=== PATIENT | female | born 1985 | race Two or more races ===

== ENCOUNTER 2019-08-08 16:18 | Emergency (ER) | payer MEDICAID ==
[2019-08-08] MEDS ORDERED: Cyclobenzaprine 10 MG Tab PO ONE (16:19)
[2019-08-08 16:53] VITALS: BP 133/88; PULSE 87
[2019-08-08] MEDS ORDERED: Ketorolac 60 MG/2 ML SDV IM ONE (17:45)
[2019-08-08] MEDS ORDERED: Fluconazole 150 MG Tab PO ONE (20:34)
[2019-08-08] MEDS ORDERED: Ketorolac 60 MG/2 ML SDV ONE (20:48)
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
[2019-08-11 13:09] LABS: CHLAMYDIA TRACHOMATIS, NAA Negative (Negative); NEISSERIA GONORRHOEAE, NAA Negative (Negative)
== END 2019-08-08 21:14 | disposition home or self-care (01) ==
LOC: FB.ED 16:18
DX: S09.90XA Unspecified injury of head, initial encounter (principal); F17.210 Nicotine dependence, cigarettes, uncomplicated; Z88.2 Allergy status to sulfonamides; Z88.8 Allergy status to other drugs, medicaments and biological substances; Z79.899 Other long term (current) drug therapy; Y04.0XXA Assault by unarmed brawl or fight, initial encounter; Y92.009 Unspecified place in unspecified non-institutional (private) residence as the place of occurrence of the external cause
CPT/HCPCS: 36415; 70450; 71111; 72072; 72100; 72125; 73130-50; 80053; 82150; 83690; 84702; 85025; 85610; 85730; 87491; 87591; 96372; 99284-25; A9270-GY; J1885

== ENCOUNTER 2019-08-28 03:03 | Emergency (ER) | payer MEDICAID ==
[2019-08-28 03:19] VITALS: BP 126/64; PULSE 102
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
[2019-08-28] MEDS ORDERED: Azithromycin 500 MG Tab PO ONE (03:40)
== END 2019-08-28 04:00 | disposition home or self-care (01) ==
LOC: FB.ED 03:03
DX: J01.90 Acute sinusitis, unspecified (principal); H10.33 Unspecified acute conjunctivitis, bilateral; F17.210 Nicotine dependence, cigarettes, uncomplicated; Z88.8 Allergy status to other drugs, medicaments and biological substances; Z88.2 Allergy status to sulfonamides; Z79.899 Other long term (current) drug therapy
CPT/HCPCS: 99283; A9270

== ENCOUNTER 2019-12-04 20:17 | Emergency (ER) | payer MEDICAID ==
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
[2019-12-04] MEDS: Doxycycline 100 MG Tab PO STA (21:13)
[2019-12-04] MEDS: Ketorolac 60 MG/2 ML SDV IM ONE (21:13)
[2019-12-04] MEDS: Clindamycin HCl 150 MG Cap PO STA (21:13)
[2019-12-04 21:50] VITALS: BP 122/65; PULSE 100
== END 2019-12-04 21:34 | disposition home or self-care (01) ==
LOC: FB.ED 20:17
DX: L03.116 Cellulitis of left lower limb (principal); M19.90 Unspecified osteoarthritis, unspecified site; F17.210 Nicotine dependence, cigarettes, uncomplicated; Z88.2 Allergy status to sulfonamides; Z88.1 Allergy status to other antibiotic agents
CPT/HCPCS: 96372; 99283; A9270-GY; J1885

== ENCOUNTER 2021-08-28 12:47 | Emergency (ER) | payer MEDICAID, OTHER ==
[2021-08-28] MEDS ORDERED: Ketorolac 30 MG/ML SDV IM ONE (12:52)
[2021-08-28] MEDS ORDERED: Ketorolac 30 MG/ML SDV IVPUSH ONE (13:04)
[2021-08-28] MEDS ORDERED: Acetaminophen/HYDROcodone 325-5 MG Tab PO ONE (14:25)
== END 2021-08-28 16:50 | disposition home or self-care (01) ==
LOC: FB.ED 12:47
DX: S39.012A Strain of muscle, fascia and tendon of lower back, initial encounter (principal); S60.012A Contusion of left thumb without damage to nail, initial encounter; Z88.1 Allergy status to other antibiotic agents; Z88.2 Allergy status to sulfonamides; V49.10XA Passenger injured in collision with unspecified motor vehicles in nontraffic accident, initial encounter; Y92.410 Unspecified street and highway as the place of occurrence of the external cause
CPT/HCPCS: 71045; 72131; 73140; 81001; 81025; 93005; 96374; 99285; A9270; J1885

== ENCOUNTER 2022-08-14 06:55 | Emergency (ER) | payer BC ==
[2022-08-14 07:32] VITALS: BP 129/88; PULSE 102
[2022-08-14 07:44] LABS: ESTIMATED GFR 96 mL/min (>60)
[2022-08-14] MEDS ORDERED: Ketorolac 30 MG/ML SDV IM ONE (08:02)
[2022-08-14] MEDS ORDERED: LORazepam 1 MG Tab PO ONE (08:02)
[2022-08-14] MEDS ORDERED: Ondansetron 4 MG Tab.DIS PO ONE (08:02)
== END 2022-08-14 08:55 | disposition home or self-care (01) ==
LOC: FB.ED 06:55
DX: R07.89 Other chest pain (principal); G43.909 Migraine, unspecified, not intractable, without status migrainosus; F19.10 Other psychoactive substance abuse, uncomplicated; K21.9 Gastro-esophageal reflux disease without esophagitis; F17.210 Nicotine dependence, cigarettes, uncomplicated; Z88.1 Allergy status to other antibiotic agents
CPT/HCPCS: 36415; 71045; 80053; 80307; 84484; 85025; 93005; 93010; 96372; 99283; 99285; A9270-GY; J1885; Q0162

== ENCOUNTER 2023-05-16 04:16 | Emergency (ER) | payer BC, MEDICAID ==
[2023-05-16] MEDS ORDERED: Ketorolac 30 MG/ML SDV IVPUSH ONE (04:49)
[2023-05-16] MEDS ORDERED: Morphine 4 MG/ML VIAL IVPUSH ONE ×2 (04:49→06:02)
[2023-05-16] MEDS ORDERED: Sodium Chloride 0.9% 1,000 ML IV STA (04:50)
[2023-05-16] MEDS: Ondansetron 4 MG/2 ML SDV IVPUSH ONE ×4 (04:52→06:11)
[2023-05-16 05:11] LABS: BASOPHILS PERCENT AUTO 0.6 % (0.2-1.5); BLOOD UREA NITROGEN,BUN 19 mg/dL (7-18); BUN/CREATININE RATIO 27.1 (9-20); CARBON DIOXIDE,CO2 31 mmol/L (21-32); CHLORIDE,CL 103 mmol/L (100-110); CREATININE 0.7 mg/dL (0.55-1.02); EOSINOPHILS ABSOLUTE AUTO 0.1 x10-3/uL (0.0-0.8); EOSINOPHILS PERCENT AUTO 1.8 % (0.6-8.1); ESTIMATED GFR 112 mL/min (>60); GLUCOSE RANDOM 94 mg/dL (80-116); HEMATOCRIT 34.8 % (34.2-48.2); HEMOGLOBIN 11.5 g/dL (11.4-15.5); LYMPHOCYTES PERCENT AUTO 24.4 % (18.4-52.1); MEAN CORPUSCULAR HEMOGLOBIN 27.3 pg (23.9-33.9); MEAN CORPUSCULAR HGB CONC 32.9 g/dL (31.9-34.8); MEAN PLATELET VOLUME 8.2 fL (7.1-12.4); MONOCYTES ABSOLUTE AUTO 0.7 x10-3/uL (0.3-1.0); MONOCYTES PERCENT AUTO 7.9 % (4.4-15.7); NEUTROPHILS ABSOLUTE AUTO 5.4 x10-3/uL (1.5-6.3); NEUTROPHILS PERCENT AUTO 65.3 % (30.8-76.2); PLATELET COUNT,PLT 327 x10(3)uL (151-488); POTASSIUM,K 4.6 mmol/L (3.5-5.3); RED BLOOD CELL COUNT 4.19 x10(6)uL (3.60-5.20); RED CELL DISTRIBUTION WIDTH 14.3 % (12.3-16.5); SODIUM,NA 138 mmol/L (135-145); WHITE BLOOD CELL COUNT,WBC 8.2 x10-3/uL (3.0-10.3)
[2023-05-16 05:14] LABS: C-REACTIVE PROTEIN 0.37 mg/dL (<0.33)
[2023-05-16 05:16] LABS: A/G RATIO 0.9; ALANINE AMINOTRANSFERASE,ALT 47 U/L (12-36); ALBUMIN 3.1 g/dL (3.5-5.2); ALKALINE PHOSPHATASE 66 IU/L (56-112); ASPARTATE AMNIOTRANSFERASE,AST 39 IU/L (5-25); BILIRUBIN TOTAL 0.3 mg/dL (0.1-1.3); PROTEIN TOTAL,TP 6.6 g/dL (6.0-8.0)
[2023-05-16 05:57] LABS: BILIRUBIN,URINE NEGATIVE (NEGATIVE); GLUCOSE,URINE NORMAL (NORMAL); KETONES,URINE NEGATIVE (NEGATIVE); LEUKOCYTE ESTERASE,URINE NEGATIVE (NEGATIVE); NITRITE,URINE NEGATIVE (NEGATIVE); OCCULT BLOOD,URINE NEGATIVE (NEGATIVE); PROTEIN,URINE NEGATIVE (NEGATIVE); UROBILINOGEN,URINE NORMAL (NEGATIVE)
[2023-05-16 06:07] LABS: APPEARANCE,URINE CLEAR (CLEAR); BACTERIA,URINE FEW (NS); COLOR,URINE YELLOW (YELLOW); MUCUS,URINE FEW (NS); RBC,URINE 0-5 (0-5); SQUAMOUS EPITHELIAL CELLS,UR FEW (NS,R,O); WBC,URINE 0-5 (0-5)
[2023-05-16] MEDS ORDERED: Iopamidol 755 Mg/ML 100 ML Bottle IV ONE (07:11)
[2023-05-16] MEDS ORDERED: cefTRIAXone 2 GM Vial IVPUSH ONE (08:28)
[2023-05-16 09:37] VITALS: BP 102/60; PULSE 58
[2023-05-17 18:02] LABS: HEPATITIS A ANTIBODY, IGM Negative (Negative); HEPATITIS B CORE ANTIBODY, IGM Negative (Negative); HEPATITIS B SURFACE ANTIGEN Negative (Negative); HEPATITIS C AB CIA INTERP Negative (Negative); HEPATITIS C ANTIBODY CIA INDEX <0.02 IV
== END 2023-05-16 09:35 | disposition home or self-care (01) ==
LOC: FB.ED 04:16
DX: R10.2 Pelvic and perineal pain (principal); K75.9 Inflammatory liver disease, unspecified; F17.210 Nicotine dependence, cigarettes, uncomplicated; K21.9 Gastro-esophageal reflux disease without esophagitis; Z79.899 Other long term (current) drug therapy; Z88.2 Allergy status to sulfonamides; Z88.8 Allergy status to other drugs, medicaments and biological substances
CPT/HCPCS: 36415; 74177; 80053; 80074; 81001; 81025; 83690; 85025; 86140; 96374; 96375; 96376; 99284-25; J0696; J1885; J2270; J2405; J7030; Q9967

== ENCOUNTER 2023-09-05 12:39 | Emergency (ER) | payer MEDICAID, OTHER ==
[2023-09-05 13:40] LABS: BASOPHILS PERCENT AUTO 0.5 % (0.2-1.5); EOSINOPHILS ABSOLUTE AUTO 0.1 x10-3/uL (0.0-0.8); EOSINOPHILS PERCENT AUTO 1.4 % (0.6-8.1); HEMATOCRIT 35.9 % (34.2-48.2); HEMOGLOBIN 11.8 g/dL (11.4-15.5); LYMPHOCYTES ABSOLUTE AUTO 1.7 x10-3/uL (1.0-4.4); LYMPHOCYTES PERCENT AUTO 22.2 % (18.4-52.1); MEAN CORPUSCULAR HEMOGLOBIN 26.9 pg (23.9-33.9); MEAN CORPUSCULAR HGB CONC 32.9 g/dL (31.9-34.8); MEAN CORPUSCULAR VOLUME 81.6 fL (76.7-100.5); MEAN PLATELET VOLUME 7.9 fL (7.1-12.4); MONOCYTES ABSOLUTE AUTO 0.7 x10-3/uL (0.3-1.0); MONOCYTES PERCENT AUTO 9.1 % (4.4-15.7); NEUTROPHILS PERCENT AUTO 66.8 % (30.8-76.2); PLATELET COUNT,PLT 352 x10(3)uL (151-488); RED CELL DISTRIBUTION WIDTH 14.8 % (12.3-16.5); WHITE BLOOD CELL COUNT,WBC 7.5 x10-3/uL (3.0-10.3)
[2023-09-05 13:42] LABS: BLOOD UREA NITROGEN,BUN 16 mg/dL (7-18); BUN/CREATININE RATIO 17.8 (9-20); CALCIUM 9.7 mg/dL (8.6-10.2); CARBON DIOXIDE,CO2 29 mmol/L (21-32); CHLORIDE,CL 102 mmol/L (100-110); CREATININE 0.9 mg/dL (0.55-1.02); EST CRCL DRUG DOSING (CG) 77.79 mL/min; ESTIMATED GFR 83 mL/min (>60); GLUCOSE RANDOM 97 mg/dL (80-116); POTASSIUM,K 3.2 mmol/L (3.5-5.3); SODIUM,NA 139 mmol/L (135-145)
[2023-09-05 13:48] LABS: A/G RATIO 0.9; ALANINE AMINOTRANSFERASE,ALT 22 U/L (12-36); ALBUMIN 3.4 g/dL (3.5-5.2); ALKALINE PHOSPHATASE 62 IU/L (56-112); ASPARTATE AMNIOTRANSFERASE,AST 16 IU/L (5-25); BILIRUBIN TOTAL 0.4 mg/dL (0.1-1.3); PROTEIN TOTAL,TP 7.2 g/dL (6.0-8.0)
[2023-09-05 13:55] LABS: TROPONIN I 4.4 pg/mL (4.0-60.3)
[2023-09-05 14:01] LABS: AMPHETAMINES SCREEN, URINE POSITIVE (NEGATIVE); BARBITURATE SCREEN,URINE NEGATIVE (NEGATIVE); BENZODIAZEPINES SCREEN,URINE NEGATIVE (NEGATIVE); BUPRENORPHINE SCREEN,URINE NEGATIVE (NEGATIVE); METHADONE SCREEN, URINE NEGATIVE (NEGATIVE); METHAMPHETAMINE SCREEN, URINE POSITIVE (NEGATIVE); OXYCODONE SCREEN,URINE NEGATIVE (NEGATIVE); THC SCREEN,URINE NEGATIVE (NEGATIVE)
[2023-09-05] MEDS: Potassium Chloride 20 MEQ Tab.ER PO ONE (14:20)
[2023-09-05 14:34] VITALS: BP 124/80; PULSE 89
== END 2023-09-05 14:32 | disposition home or self-care (01) ==
LOC: FB.ED 12:39
DX: R07.9 Chest pain, unspecified (principal); E87.5 Hyperkalemia; F17.210 Nicotine dependence, cigarettes, uncomplicated; Z88.8 Allergy status to other drugs, medicaments and biological substances; Z88.2 Allergy status to sulfonamides; Z79.899 Other long term (current) drug therapy
CPT/HCPCS: 36415; 71045; 80053; 80307; 83880; 84484; 85025; 93005; 99285; A9270

== ENCOUNTER 2024-04-02 08:43 | Emergency (ER) | payer SELFPAY ==
[2024-04-02 08:56] VITALS: BP 109/77; PULSE 105
== END 2024-04-02 09:03 | disposition home or self-care (01) ==
LOC: FB.ED 08:43
DX: S01.511A Laceration without foreign body of lip, initial encounter (principal); Z79.899 Other long term (current) drug therapy; Z88.1 Allergy status to other antibiotic agents; Z88.2 Allergy status to sulfonamides; W55.03XA Scratched by cat, initial encounter
CPT/HCPCS: 12011; 99282